=== PATIENT | female | born 1945 | race Caucasian/White ===

== ENCOUNTER → 2017-01-28 | Outpatient (CLI) | payer MEDICARE ==
[2017-01-28 10:36] LABS: AUTOMATED NEUTROPHIL # 2.9 TH/MM3 (1.8-7.7); BASOPHIL % 0.9 % (0.0-2.0); EOSINOPHIL # 0.1 TH/MM3 (0-0.4); EOSINOPHIL % 1.6 % (0.0-4.0); HEMATOCRIT 39.9 % (35.0-46.0); HEMO FLAGS DIFF FINAL; LYMPH % 26.1 % (9.0-44.0); LYMPHOCYTE # 1.1 TH/MM3 (1.0-4.8); MEAN CELL VOLUME 87.3 FL (80.0-100.0); MEAN CORPUSCULAR HEMOGLOBIN 28.8 PG (27.0-34.0); MONO % 7.4 % (0.0-8.0); PLATELET COUNT 302 TH/MM3 (150-450); RED BLOOD COUNT 4.57 MIL/MM3 (4.00-5.30); RED CELL DISTRIBUTION WIDTH 12.6 % (11.6-17.2); WHITE BLOOD COUNT 4.4 TH/MM3 (4.0-11.0)
[2017-01-28 10:56] LABS: CREATINE KINASE 116 U/L (26-192)
[2017-01-28 11:08] LABS: CKMB 1.8 NG/ML (0.5-3.6)
[2017-01-28 11:39] LABS: FERRITIN 45 NG/ML (8-252); TRANSFERRIN IRON PROFILE 298 MG/DL (200-360)
== END ==
LOC: PLAB 09:59
PROVIDERS: ATTEND Family Medicine
DX: R07.89 Other chest pain (principal); D50.9 Iron deficiency anemia, unspecified
CPT/HCPCS: 36415; 82550; 82552; 82728; 83540; 83550; 84484; 85025